=== PATIENT | male | born 1960 | race Hispanic/Latino ===

== ENCOUNTER → 2019-01-08 | Outpatient (CLI) | payer OTHER ==
[~2019-01-08] MED LIST: LEVOTHYROXINE25 MCG PO; PANTOPRAZOLE SO40 MG PO
--- NOTE | 2019-01-08 09:53 | Diagnostic Imaging Report ---
EXAM: US ABDOMEN COMPLETE DATE: 01/08/2019 7:33 AM Time stamp on exam: INDICATION: Abnormal liver function tests COMPARISON: None TECHNIQUE: Transverse and longitudinal osborne scale and color doppler sonographic images of the upper abdomen were obtained. FINDINGS: LIVER 14 cm in the right midclavicular line. Coarse echogenicity, normal contour, no masses. SPLEEN 15.5 cm in maximum diameter. Normal echogenicity, no masses. GALLBLADDER No stones, sludge, wall-thickening or pericholecystic fluid. Negative sonographic Mcclellan's sign. BILE DUCTS No intra nor extra-hepatic biliary dilation. Common bile duct measures 0.3 cm PANCREAS: Poorly visualized. RIGHT KIDNEY: 12.1 cm Echogenicity: Normal Collecting System: No hydronephrosis Stones: None Cyst/Mass: 1.8 cm simple cyst in the interpolar region. LEFT KIDNEY: 12.2 cm Echogenicity: Normal Collecting System: No hydronephrosis Stones: None Cyst/Mass: None VESSELS: Aorta: Poorly visualized. Inferior Vena Cava: Patent Main Portal Vein: 0.8 cm, normal size with hepatopetal flow. FREE FLUID: None IMPRESSION: Coarse hepatic parenchymal echotexture may indicate cirrhosis, particularly in the setting of splenomegaly. Correlation with hepatitis serologies or for history of alcohol abuse is suggested. Signed by: Dr. Sudhir Dennison M.D. on 01/08/2019 9:50 AM
== END ==
LOC: US 07:18
PROVIDERS: ATTEND Internal Medicine
DX: R74.8 Abnormal levels of other serum enzymes (principal)
CPT/HCPCS: 76700